=== PATIENT | female | born 1980 | race American Indian/Alaskan Native ===

== ENCOUNTER 2017-04-30 01:49 | Inpatient (IN) | payer OTHER ==
[2017-04-30 01:49] VITALS: BMI 25.0
--- NOTE | 2017-04-30 02:13 | ED PDOC ---
Arrival/HPI - General Chief Complaint: Chest Pain Time Seen by Provider: 04/30/17 02:05 Historian: Patient - History of Present Illness Narrative History of Present Illness (Text): 04/30/17 02:13 Tess Hammond is a 36 year old female, whose past medical history includes anemia , who presents to the Emergency department complaining of chest pain tonight. Patient states she began experiencing chest pain radiating to her right, worsened with movement, tonight while lying in bed tonight. Patient reports associated dizziness and paresthesias to her right arm. Patient denies any history of tobacco abuse, fever, shortness of breath, abdominal pain, nausea, vomiting, diarrhea, back pain, neck pain, headache, vision changes, or any other complaints. Time/Duration: Other (tonight) Symptom Onset: Gradual Symptom Course: Unchanged Activities at Onset: Light Context: Home Past Medical History - Provider Review Nursing Documentation Reviewed: Yes - Infectious Disease Hx of Infectious Diseases: None - Reproductive Menopause: No - Cardiac Hx Cardiac Disorders: No - Pulmonary Hx Respiratory Disorders: Yes Hx Asthma: Yes - Neurological Hx Neurological Disorder: Yes Hx Headaches: Yes - HEENT Hx HEENT Disorder: No - Renal Hx Renal Disorder: No - Endocrine/Metabolic Hx Endocrine Disorders: No - Hematological/Oncological Hx Blood Disorders: No - Integumentary Hx Dermatological Disorder: No - Musculoskeletal/Rheumatological Hx Musculoskeletal Disorders: No Hx Falls: No - Gastrointestinal Hx Gastrointestinal Disorders: Yes Hx Constipation: Yes - Genitourinary/Gynecological Hx Genitourinary Disorders: No - Psychiatric Hx Psychophysiologic Disorder: No Hx Depression: No Hx Emotional Abuse: No Hx Physical Abuse: No Hx Substance Use: No - Suicidal Assessment Feels Threatened In Home Enviroment: No Family/Social History - Physician Review Nursing Documentation Reviewed: Yes Family/Social History: Unknown Family HX Smoking Status: Never Smoked Hx Alcohol Use: No Hx Substance Use: No Hx Substance Use Treatment: No Allergies/Home Meds Allergies/Adverse Reactions: Allergies No Known Allergies Allergy (Verified 04/30/17 01:58) Home Medications: Home Meds Medication Instructions Recorded Confirmed No Known Home Med 04/30/17 04/30/17 Review of Systems - Physician Review All systems were reviewed & negative as marked: Yes - Review of Systems Constitutional: Normal. absent: Fevers Eyes: Normal ENT: Normal Respiratory: Normal. absent: SOB, Cough Cardiovascular: Chest Pain Gastrointestinal: Normal. absent: Abdominal Pain Genitourinary Female: Normal. absent: Dysuria, Frequency, Urine Output Changes Musculoskeletal: Other (+paresthesias). absent: Back Pain Skin: Normal Neurological: Dizziness Endocrine: Normal Hemo/Lymphatic: Normal Psychiatric: Normal Physical Exam Vital Signs Reviewed: Yes Vital Signs Temp Pulse Resp BP Pulse Ox 04/30/17 01:49 98.4 F 82 17 122/54 L 100 Temperature: Afebrile Blood Pressure: Normal Pulse: Regular Respiratory Rate: Normal Appearance: Positive for: Well-Appearing, Non-Toxic, Comfortable Pain Distress: None Mental Status: Positive for: Alert and Oriented X 3 - Systems Exam Head: Present: Atraumatic, Normocephalic Pupils: Present: PERRL Extroacular Muscles: Present: EOMI Conjunctiva: Present: Normal Mouth: Present: Moist Mucous Membranes Neck: Present: Normal Range of Motion Respiratory/Chest: Present: Clear to Auscultation, Good Air Exchange. No: Respiratory Distress, Accessory Muscle Use Cardiovascular: Present: Regular Rate and Rhythm, Normal S1, S2. No: Murmurs Abdomen: Present: Normal Bowel Sounds. No: Tenderness, Distention, Peritoneal Signs Back: Present: Normal Inspection Upper Extremity: Present: Normal Inspection. No: Cyanosis, Edema Lower Extremity: Present: Normal Inspection. No: Edema Neurological: Present: GCS=15, CN II-XII Intact, Speech Normal Skin: Present: Warm, Dry, Normal Color. No: Rashes Psychiatric: Present: Alert, Oriented x 3, Normal Insight, Normal Concentration Medical Decision Making ED Course and Treatment: 04/30/17 02:13 Impression: 36 year old female complaining of chest pain and dizziness tonight. Plan: -- CT Head w/o contrast -- EKG -- Labs, cardiac enzymes -- Reassess and disposition Progress Notes: Reviewed EKG, NSR at [address]-segment elevations or depressions, no T-wave inversions, normal intervals. 04/30/17 03:30 Labs noted, hgb: 5.8. hct: 22.1. Blood type and screen ordered, will transfuse pt. 04/30/17 04:[address] Guerrero, who is aware and agrees with plan. Accepts pt in to her service. Pt will go to Telemetry observation for anemia. Requests Dr. Crane on consult. 04/30/17 05:40 CT Head shows: No intracranial hemorrhage. No intracranial edema. No evidence of infarct. The sinuses and mastoid air cells are clear. IMPRESSION: No acute findings. - Lab Interpretations Lab Results: 04/30/17 02:00 04/30/17 02:00 Lab Results 04/30/17 04:19: Blood Type Pending, Antibody Screen Pending, Crossmatch See Detail, BBK History Checked Patient has bt 04/30/17 02:00: WBC 4.9, RBC 3.51, Hgb 5.8 L*, Hct 22.1 L, MCV 63.0 L, MCH 16.5 L, MCHC 26.2 L, RDW 20.3 H, Plt Count 125 04/30/17 02:00: Sodium 137, Potassium 3.7, Chloride 103, Carbon Dioxide 24, Anion Gap 14, BUN 9, Creatinine 0.7, Est GFR ( Amer) > 60, Est GFR (Non- Af Amer) > 60, Random Glucose 102, Calcium 9.7, Total Bilirubin 0.3, AST 23, ALT 18, Alkaline Phosphatase 80, Lactate Dehydrogenase 246 L, Total Creatine Kinase 39, Troponin I 0.06, Total Protein 7.9, Albumin 4.1, Globulin 3.8, Albumin/Globulin Ratio 1.1 04/30/17 02:00: PT 12.8 H, INR 1.17 H, APTT 28.9 I have reviewed the lab results: Yes - RAD Interpretation Radiology Orders: 04/30/17 02:19 HEAD W/O CONTRAST [CT] Stat Intervention Teacher: Radiologist - EKG Interpretation Interpreted by ED Physician: Yes Type: 12 lead EKG - Scribe Statement The provider has reviewed the documentation as recorded by the Missy Song Provider Scribe Attestation: All medical record entries made by the [employer] were at my direction and personally dictated by me. I have reviewed the chart and agree that the record accurately reflects my personal performance of the history, physical exam, medical decision making, and the department course for this patient. I have also personally directed, reviewed, and agree with the discharge instructions and disposition. Disposition/Present on Arrival - Present on Arrival Any Indicators Present on Arrival: No History of DVT/PE: No History of Uncontrolled Diabetes: No Urinary Catheter: No History of Decub. Ulcer: No History Surgical Site Infection Following: None - Disposition Have Diagnosis and Disposition been Completed?: Yes Diagnosis: Chest pain, Anemia Disposition: HOSPITALIZED Disposition Time: 04:49 Patient Problems: Current Active Problems Problem Status Onset Anemia Acute Chest pain Acute Condition: STABLE
[2017-04-30 02:42] LABS: MEAN CORPUSCULAR HEMOGLOBIN 16.5 pg (25.0-35.0); MEAN CORPUSCULAR HGB CONC 26.2 g/dl (31.0-37.0); PLATELET COUNT 125 10^3/uL (120.0-450.0); RBC 3.51 10^6/uL (3.5-6.1); RED CELL DISTRIBUTION WIDTH 20.3 % (11.5-14.5); WHITE BLOOD COUNT 4.9 10^3/ul (4.5-11.0)
[2017-04-30 02:47] LABS: ALB/GLOB RATIO 1.1 (1.1-1.8); ALBUMIN 4.1 g/dL (3.0-4.8); ALT/SGPT 18 U/L (7-56); AST/SGOT 23 U/L (14-36); BLOOD UREA NITROGEN 9 mg/dL (7-21); CALCIUM 9.7 mg/dL (8.4-10.5); GFR AFRICAN-AMERICAN > 60; GFR NON-AFRICAN AMERICAN > 60
[2017-04-30 02:48] LABS: INR 1.17 (0.93-1.08); PARTIAL THROMBOPLASTIN TIME 28.9 Seconds (25.1-36.5); PROTHROMBIN TIME 12.8 SECONDS (9.4-12.5)
[2017-04-30 02:53] LABS: HEMOGLOBIN 5.8 g/dL (12.0-16.0)
[2017-04-30 02:58] LABS: TROPONIN I 0.06 ng/mL
--- NOTE | 2017-04-30 05:36 | CT ---
EXAM: CT Head Without Intravenous Contrast EXAM DATE/TIME: 04/30/2017 2:19 AM CLINICAL HISTORY: 36 years old, female; Pain; Headache; Additional info: Dizzy TECHNIQUE: Axial computed tomography images of the head/brain without intravenous contrast. All CT scans at this facility use one or more dose reduction techniques, viz.: automated exposure control; ma/kV adjustment per patient size (including targeted exams where dose is matched to indication; i.e. head); or iterative reconstruction technique. Coronal and sagittal reformatted images were created and reviewed. COMPARISON: No relevant prior studies available. FINDINGS: No intracranial hemorrhage. No intracranial edema. No evidence of infarct. The sinuses and mastoid air cells are clear. IMPRESSION: No acute findings.
[2017-04-30 08:32] LABS: URINE BILIRUBIN NEGATIVE (NEGATIVE); URINE BLOOD NEGATIVE (NEGATIVE); URINE GLUCOSE (UA) NEGATIVE (NEGATIVE); URINE LEUKOCYTE ESTERASE NEGATIVE Leu/uL (NEGATIVE); URINE NITRATE NEGATIVE (NEGATIVE); URINE PROTEIN NEGATIVE mg/dL (<30 mg/dL)
[2017-04-30 08:42] LABS: URINE APPEARANCE CLEAR (CLEAR); URINE COLOR YELLOW (YELLOW)
[2017-04-30 08:58] LABS: IRON 17 ug/dL (45-180)
[2017-04-30 09:07] LABS: TOTAL IRON BINDING CAPACITY 399 ug/dL (265-497)
[2017-04-30 09:09] LABS: % IRON SATURATION 4 % (20-55)
--- NOTE | 2017-04-30 15:36 | CARD ---
APPROVED REPORT EKG Measurement Heart [id number] <Conclusion> Normal sinus rhythm Normal ECG
[2017-04-30] MEDS ORDERED: Influenza Vaccine 60 mcg/0.5 mL SYR (4YR UP) IM ONE (16:21)
[2017-04-30 16:35] LABS: HEMOGLOBIN 8.2 g/dL (12.0-16.0); MEAN CELL VOLUME 67.3 fl (80.0-105.0); MEAN CORPUSCULAR HEMOGLOBIN 19.2 pg (25.0-35.0); MEAN CORPUSCULAR HGB CONC 28.5 g/dl (31.0-37.0); PLATELET COUNT 134 10^3/uL (120.0-450.0); RBC 4.28 10^6/uL (3.5-6.1); RED CELL DISTRIBUTION WIDTH 23.4 % (11.5-14.5); WHITE BLOOD COUNT 6.2 10^3/ul (4.5-11.0)
[2017-04-30] MEDS ORDERED: Iron Sucrose 100 mg/5 ml Inj IVP ONE (17:06)
[2017-04-30 17:36] LABS: TROPONIN I 0.07 ng/mL
[2017-04-30] MEDS: Cholecalciferol 1,000 INTLU TAB PO SCH (18:39)
[2017-04-30 21:46] LABS: FERRITIN 3.8 ng/mL
[2017-04-30 22:16] LABS: FOLATE 9.2 ng/mL
[2017-04-30 22:22] LABS: TROPONIN I 0.06 ng/mL
--- NOTE | 2017-05-01 02:45 | HP ---
CHIEF COMPLAINT: Chest pain and shortness of breath. HISTORY OF PRESENT ILLNESS: Ms. Tess Hammond is a 36-year-old female whose past medical history has anemia, came to the emergency room department complaining of chest pain tonight. Patient states that pain began experiencing in the chest, radiating to her right side, worsening with the movement tonight while lying down in the bed. Patient reports associated dizziness and paresthesia of her right arm. Patient denies any history of tobacco abuse, drug abuse, or alcohol abuse. No fever. No abdominal pain. No nausea, vomiting, or diarrhea. No back pain. No neck pain. No headache. No vision changes. PAST MEDICAL HISTORY: Asthma, headache, constipation. FAMILY HISTORY: Father, mother noncontributory. HABITS: Never smoked. No drugs. No ethanol abuse. ALLERGIES: PATIENT IS NOT ALLERGIC WITH ANY MEDICATION. MEDICATIONS: Denied, not taking any medications. REVIEW OF SYSTEMS: Patient was seen and examined at the bedside. No shortness of breath. No coughing. History of chest pain, but not feeling that at the moment when I did the examination. No abdominal pain. No dysuria, frequency, urinary output changes. Has paresthesia. No back pain. No rash. PHYSICAL EXAMINATION: VITAL SIGNS: Temperature 98.4, pulse 82, respiratory rate 17, blood pressure 122/54. HEENT: Head: Normocephalic and atraumatic. Eyes: PERRLA. Extraocular muscles intact. Conjunctivae clear. Nose: Patent. Mucous membranes moist. NECK: Supple. No carotid bruits. No JVD or thyromegaly. CHEST: Bilaterally symmetrical. HEART: S1, S2 positive. LUNGS: Clear to auscultation. ABDOMEN: Soft. Bowel sounds positive. No organomegaly. EXTREMITIES: No edema. No cyanosis. NEUROLOGIC: Patient is sleepy, arousable. Moving all four extremities. No focal deficit. LABORATORY DATA: White blood cells 4.9, hemoglobin 5.8, hematocrit 22.1, platelet 125. Sodium 137, potassium 3.7, BUN 9, creatinine 0.7, glucose 102. ASSESSMENT AND PLAN: Ms. Tess Hammond, a 36-year-old lady, came with severe anemia, symptomatic; chest pain; dizziness; seen by the freight flow sales leader Dr. Crane. Packed red blood cells transfused. Chest pain and dizziness improved. Admission hemoglobin was 5.8; after transfusion, it is 8.2. Patient has iron deficiency. We will order cardiac enzymes x3. Waiting for Dr. Richardson's input. Meanwhile, continue present treatment. Gastrointestinal and deep vein thrombosis prophylaxis. Repeat labs. We will follow. Vita Guerrero MD
[2017-05-01 07:23] LABS: HEMOGLOBIN 8.2 g/dL (12.0-16.0); MEAN CORPUSCULAR HEMOGLOBIN 18.6 pg (25.0-35.0); MEAN CORPUSCULAR HGB CONC 27.8 g/dl (31.0-37.0); PLATELET COUNT 121 10^3/uL (120.0-450.0); RED CELL DISTRIBUTION WIDTH 22.8 % (11.5-14.5); WHITE BLOOD COUNT 4.6 10^3/ul (4.5-11.0)
[2017-05-01 07:42] LABS: BLOOD UREA NITROGEN 11 mg/dL (7-21); CALCIUM 9.8 mg/dL (8.4-10.5); GFR AFRICAN-AMERICAN > 60; GFR NON-AFRICAN AMERICAN > 60; HDL CHOLESTEROL 40 mg/dL (29-60)
[2017-05-01 07:51] LABS: LDL CHOLESTEROL 83 mg/dL (0-129); TROPONIN I 0.07 ng/mL
[2017-05-01] MEDS: Cholecalciferol 1,000 INTLU TAB PO SCH (11:30)
[2017-05-01 12:20] LABS: FOLATE 5.3 ng/mL
--- NOTE | 2017-05-01 14:05 | CON ---
DATE: 04/30/2017 CONSULT REQUESTED BY: Vita Guerrero MD REASON FOR CONSULTATION: Severe anemia. HISTORY OF PRESENT ILLNESS: Mrs. Hammond is a 36-year-old female admitted to the hospital with shortness of breath and dizziness. Hemoglobin was found to be 5.8 g/dL. She has history of menorrhagia. No history of bleeding from any other site. She had low hemoglobin previously also, has not required blood transfusion. Denies any family history of thalassemia or sickle cell trait. No dark colored stools. No abdominal pain. She has history of headaches in the past. No exacerbation recently. PAST MEDICAL HISTORY: Asthma, menorrhagia, headaches. Constipation. PAST SURGICAL HISTORY: None. FAMILY HISTORY: Noncontributory. No positive history in mother or father. PERSONAL HISTORY: Never smoked, no history of alcohol abuse. SOCIAL HISTORY: Lives at home. ALLERGIES: NO KNOWN DRUG ALLERGIES. HOME MEDICATIONS: None. REVIEW OF SYSTEMS: As per HPI. Rest of 12-point review of systems reviewed negative. PHYSICAL EXAMINATION: GENERAL: Comfortable in bed, in no acute distress. VITAL SIGNS: Temperature is 98.4, heart rate is 82, respiratory rate is 17 per minute, blood pressure is 122/54, pulse ox is 100% on room air. HEENT: Pallor positive. NECK: Supple. CHEST: Air entry present and equal bilaterally. CARDIOVASCULAR: Tachycardia plus, S1 and S2 normal. No murmur and no gallop. ABDOMEN: Soft and nontender. No hepatosplenomegaly. EXTREMITIES: No edema. HEAD TELLER: Alert and oriented x3. No focal sensory or motor deficit. IMAGING: CAT scan of the head, no acute findings. LABS: White count 4.9, hemoglobin 5.8, hematocrit 22, platelet count 125. Sodium 137, potassium 3.7, BUN 9, creatinine 0.7, glucose 102. LDH 246. ASSESSMENT AND PLAN: 1. Severe anemia. 2. Menorrhagia. 3. History of headaches. PLAN: Iron studies ordered to be done stat, showed low iron of 17, ferritin of 4 only. She has severe iron deficiency anemia likely related to menorrhagia blood loss. No other signs of blood loss as per history. MCV is lower, 67, consistent with iron deficiency anemia. No family history of thalassemia or sickle cell trait. She received 2 units of blood transfusion today. I ordered one more unit of blood transfusion. Repeat CBC after transfusion. If hemoglobin is less than 8.0 gm/dl, she might need more PRBCs. She will need IV iron, which can be done in the office upon discharge from the hospital. Thank you Dr. Guerrero for allowing us to participate in Mrs. Hammond's care. Asiya Crane MD MTDDylan
--- NOTE | 2017-05-01 22:29 | CON ---
DATE: 05/01/2017 REASON FOR CONSULTATION: Followup chest pain, shortness of breath, cardiac evaluation. BRIEF CLINICAL HISTORY: This is a 36-year-old female with past medical history significant for anemia, history of heavy periods, came in with complaint of shortness of breath for a couple of days and chest pain, left-sided which is very tender and reproducible. Denies any prior episode of chest pain, but complain shortness of breath and dizziness on exertion. PAST MEDICAL HISTORY: Significant for anemia, heavy menstrual period, constipation, headache, and asthma. FAMILY HISTORY: No history of coronary artery disease. SOCIAL HISTORY: Denies any smoking. Denies any history of alcohol abuse. 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 ALLERGIES: NO KNOWN DRUG ALLERGIES. CURRENT MEDICATIONS: Denies any medication at home. REVIEW OF SYSTEMS: As per HPI. PHYSICAL EXAMINATION: As follows: VITAL SIGNS: Temperature afebrile, heart rate 60, blood pressure 90/50. HEENT: PERRLA. Extraocular muscles intact. NECK: Supple. No carotid bruit or thyromegaly. CHEST: Clear to auscultation. HEART: S1 and S2 regular. ABDOMEN: Soft. EXTREMITIES: Clubbing and cyanosis negative. LABORATORY DATA: Blood workup as follows: WBC 4.6, hemoglobin 8.8, hematocrit 29.5, platelet count 121. Admitting hemoglobin 5.8, sodium 130, potassium 3.0, chloride 106, carbon dioxide 23, anion gap of 12, BUN 11, creatinine 0.7. EKG showed normal sinus rate of 61. IMPRESSION: Atypical chest pain, tenderness in the chest, shortness of breath secondary to anemia, but troponin most likely secondary to hemodynamic instability. RECOMMENDATIONS: We will unit of packed RBC and we will just for risk stratification do the stress test tomorrow. Discuss with the patient. I will get lipid profile, TSH, and hemoglobin A1c. Thank you Dr. Guerrero for providing us the opportunity in taking care of the patient. Keep hemoglobin around 10. Positive troponin of indeterminate range most likely secondary to anemia, but cannot rule out underlying coronary artery disease do unlikely. So we will give 2 units of blood and if hemoglobin goes around 10 we will do stress test tomorrow. We will get the stress test tomorrow after the hemoglobin reaches to 10. Telly Richardson MD
--- NOTE | 2017-05-01 23:05 | CP.PCM.PN ---
Subjective - Date & Time of Evaluation Date of Evaluation: 05/01/17 Time of Evaluation: 12:00 - Subjective Subjective: She is comfortable in bed. getting 2 more units of PRBCs as per cardiology. denies chest pain. Exertional dyspena . Hb improved to 8.2 gm/dl. Objective - Vital Signs/Intake and Output Vital Signs (last 24 hours): Temp Pulse Resp BP Pulse Ox 99 F 60 18 113/74 100 05/01/17 22:38 05/01/17 22:38 05/01/17 22:38 05/01/17 22:38 05/01/17 18:00 Intake and Output: 05/01/17 05/02/17 18:59 06:59 Intake Total 1220 0 Balance 1220 0 - Medications Medications: Current Medications Acetaminophen (Tylenol 325mg Tab) 650 mg PO Q6H PRN PRN Reason: Fever >100.4 F Last Admin: 05/01/17 21:20 Dose: 650 mg Ascorbic Acid (Vitamin C 500 Mg Tab) 500 mg PO DAILY [facility] Last Admin: 05/01/17 11:30 Dose: 500 mg Cholecalciferol (Vitamin D) 2,000 intlu PO DAILY [facility] Last Admin: 05/01/17 11:30 Dose: 2,000 intlu Cyanocobalamin (Vitamin B12 1000 Mcg Tab) 1,000 mcg PO DAILY [facility] Last Admin: 05/01/17 11:30 Dose: 1,000 mcg Famotidine (Pepcid) 40 mg PO HS [facility] Last Admin: 05/01/17 21:20 Dose: 40 mg - Labs Labs: 05/01/17 06:30 05/01/17 06:30 PT 12.8 SECONDS (9.4-12.5) H 04/30/17 02:00 INR 1.17 (0.93-1.08) H 04/30/17 02:00 APTT 28.9 Seconds (25.1-36.5) 04/30/17 02:00 - Constitutional Appears: Well, Non-toxic - Head Exam Head Exam: ATRAUMATIC, NORMAL INSPECTION, NORMOCEPHALIC - Eye Exam Eye Exam: Normal appearance - ENT Exam ENT Exam: Mucous Membranes Moist - Neck Exam Neck Exam: Normal Inspection - Respiratory Exam Respiratory Exam: Clear to Ausculation Bilateral - Cardiovascular Exam Cardiovascular Exam: REGULAR RHYTHM, +S1, +S2 - GI/Abdominal Exam GI & Abdominal Exam: Soft, Normal Bowel Sounds - Back Exam Back Exam: NORMAL INSPECTION - Neurological Exam Neurological Exam: Alert, Normal Gait, Oriented x3 - Skin Skin Exam: Normal Color, Warm Assessment and Plan - Assessment and Plan (Free Text) Assessment: 1. severe iron deficiency anemia 2. menorragia 3. SOB Plan : she is scheduled for cardiac stress test tomorrow. 2 more PRBC to be given today as per cardiology. IV iron as out patient. US of uterus to rule out fibroids. . Work up for possible mild bleeding disorder will be done as out patient. Thank you Dr. Guerrero for allowing us to participate in her care.
[2017-05-02 00:38] VITALS: RESP 20
--- NOTE | 2017-05-02 00:56 | PN ---
DATE: SUBJECTIVE: The patient is seen and examined at the bedside, looking comfortable. No nausea, vomiting, or diarrhea. and daughter is sitting on the bedside, getting blood transfusion. No shortness of breath, sometimes still getting chest pain. PHYSICAL EXAMINATION VITAL SIGNS: Temperature 98.4, heart rate 82, respiratory rate 17, blood pressure 122/54, pulse oximetry 100% on room air. HEENT: Head: Normocephalic and atraumatic. Eyes: PERRLA. Extraocular muscles intact. Conjunctivae clear. Nose patent. Mucous membranes moist. NECK: Supple. No carotid bruits. No JVD or thyromegaly. CHEST: Bilaterally symmetrical. HEART: S1 and S2 positive. LUNGS: Clear to auscultation. ABDOMEN: Soft and nontender. No organomegaly. EXTREMITIES: No edema. No cyanosis. NEUROLOGIC: The patient is oriented x3. No focal deficit. LABORATORY DATA: White blood cells 4.9, hemoglobin 5.8, hematocrit 22, platelets 125. Sodium 137, potassium 3.7, BUN 9, creatinine 0.7, glucose 102, LDH 247. ASSESSMENT AND PLAN: Ms. Tess Hammond has severe anemia, status post blood transfusion and menorrhagia due to fibroid uterus, history of headache. chest pain, iron studies ordered. The patient has iron deficiency, getting iron infusion. The patient is educated to go to see her [employer] for menorrhagia. Glass Engraver is on the case. Warehouse Logistics Manager is on the case. Appreciated input of Dr. Crane. CAT scan of the head is done, reviewed by me. The patient has history of asthma, constipation. Gastrointestinal and deep venous thrombosis prophylaxis. Repeat labs. We will follow. Vita Guerrero MD
[2017-05-02 07:26] LABS: BASO # 0.03 K/mm3 (0.0-2.0); BASO % 0.5 % (0.0-3.0); EOS # 0.1 (0.0-0.7); EOS % 2.1 % (1.5-5.0); GRAN # 3.27 (1.4-6.5); GRAN % 49.6 % (50.0-68.0); LYMPH # 2.6 (1.2-3.4); LYMPH % 39.8 % (22.0-35.0); MEAN CELL VOLUME 70.4 fl (80.0-105.0); MEAN CORPUSCULAR HEMOGLOBIN 21.1 pg (25.0-35.0); MONO # 0.5 (0.1-0.6); PLATELET COUNT 140 10^3/uL (120.0-450.0); RBC 5.21 10^6/uL (3.5-6.1); RED CELL DISTRIBUTION WIDTH 24.7 % (11.5-14.5); WHITE BLOOD COUNT 6.6 10^3/ul (4.5-11.0)
[2017-05-02 07:52] LABS: ALB/GLOB RATIO 0.9 (1.1-1.8); ALBUMIN 4.2 g/dL (3.0-4.8); ALT/SGPT 29 U/L (7-56); AST/SGOT 26 U/L (14-36); BLOOD UREA NITROGEN 11 mg/dL (7-21); GFR AFRICAN-AMERICAN > 60; GFR NON-AFRICAN AMERICAN > 60; MAGNESIUM 1.9 mg/dL (1.7-2.2)
[2017-05-02] MEDS ORDERED: Aminophylline 25 mg/ml Inj ONE (10:35)
[2017-05-02] MEDS: Cholecalciferol 1,000 INTLU TAB PO SCH (12:27)
[2017-05-02] MEDS ORDERED: Potassium Chloride 20 mEq ER Tab PO ONE (12:31)
--- NOTE | 2017-05-02 17:08 | PN ---
REASON FOR CONSULTATION AND FOLLOWUP: Chest pain and shortness of breath, cardiac evaluation, severe anemia, status post 4 units of packed RBC transfusion. SUBJECTIVE: The patient denies any chest pain, but still feels tenderness on the chest. OBJECTIVE: GENERAL: Not in apparent distress. Feels chip bin conveyor tender on the chest. VITAL SIGNS: Temperature afebrile, heart rate 50, blood pressure 105/71. HEENT: PERRLA. Extraocular muscles intact. NECK: Supple. No carotid bruits or thyromegaly. CHEST: Clear to auscultation. HEART: S1 and S2 regular. ABDOMEN: Soft. EXTREMITIES: Clubbing and cyanosis negative. LABORATORY DATA: WBC 6.6, hemoglobin 11, hematocrit 36.7, platelet count 140. Chemistry shows sodium 140, potassium 3.5, chloride 103, carbon dioxide 24, anion gap of 17, BUN 11, creatinine 0.7. IMPRESSION: Atypical chest pain, so far no evidence of acute myocardial infarction, severe anemia status post 4 units of packed RBC transfusion. Last time nurse called that patient complained of chest pain, which is very tender. The patient's temperature is 99, so 2 Tylenol given, 2 units of packed RBC was transfused. This morning, hemoglobin is 11, potassium 4. The patient is cleared for a stress test today. Further recommendation after the stress test and echo. We will follow with you. The patient is okay to be discharged after the stress test. Follow up stress as outpatient. We will supplement potassium. Thank you Dr. Guerrero for providing us the opportunity in taking care of the patient Tess Hammond. Telly Richardson MD
[2017-05-02 17:56] VITALS: BP 113/72; TEMP 97.8; O2SAT 97
--- NOTE | 2017-05-02 18:05 | CARD ---
APPROVED REPORT EXAM: Two-dimensional and M-mode echocardiogram with Doppler and color Doppler. INDICATION LV Function:SystolicDiastolic Chest Pain 2D DIMENSIONS Left Atrium (2D)3.8 (1.6-4.0cm)IVSd0.9 (0.7-1.1cm) LVDd4.3 (3.9-5.9cm)PWd0.9 (0.7-1.1cm) LVDs2.8 (2.5-4.0cm)FS (%) 35.7 % LVEF (%)65.5 (>50%) M-Mode DIMENSIONS Aortic Root2.70 (2.2-3.7cm)Aortic Cusp Exc.1.80 (1.5-2.0cm) Aortic Valve AoV Peak Dawycqyn010.0cm/Bing Peak GR.8mmHg Mitral Valve MV E Rtayxuur09.6cm/sMV A Afkgjifh09.3cm/sE/A ratio1.3 TDI Lateral E' Peak V12.10cm/sMedial E' Peak V9.36cm/sE/Lateral E'5.9 E/Medial E'7.6 Pulmonary Valve PV Peak Hsoioubg11.1cm/sPV Peak Grad.2mmHg Tricuspid Valve TR Peak [id number]/sRAP [id number] Peak Gr.24mmHg [id number] LEFT VENTRICLE The left ventricle is normal size. There is normal left ventricular wall thickness. The left ventricular function is normal.EF-55-60% There is normal LV segmental wall motion. The left ventricular diastolic function is normal. No left ventricle thrombus noted on this study. There is no ventricular septal defect visualized. There is no left ventricular aneurysm. There is no mass noted in the left ventricle. RIGHT VENTRICLE The right ventricle is normal size. There is normal right ventricular wall thickness. The right ventricular systolic function is normal. ATRIA The left atrium size is normal. The right atrium size is normal. The interatrial septum is intact with no evidence for an atrial septal defect. AORTIC VALVE The aortic valve is thickened but opens well. There is trace aortic regurgitation. There is no aortic valvular stenosis. There is no aortic valvular vegetation. MITRAL VALVE The mitral valve is thickened but opens well. Mitral regurgitation is mild. There is no mitral valve stenosis. There is no evidence of mitral valve prolapse. TRICUSPID VALVE The tricuspid valve leaflets are thickened , but open well. There is mild tricuspid regurgitation.RVSP-34 mmof Hg. There is no tricuspid valve stenosis. There is no tricuspid valve prolapse or vegetation. PULMONIC VALVE The pulmonic valve is mildly thickened. There is no pulmonic valvular regurgitation. There is no pulmonic valvular stenosis. GREAT VESSELS The aortic root is normal in size. The ascending aorta is normal in size. The pulmonary artery is normal. The IVC is normal in size and collapses >50% with inspiration. PERICARDIAL EFFUSION There is no pleural effusion. There is no pericardial effusion. <Conclusion> Normal chamber Size. EF-55-60% There is trace aortic regurgitation. Mitral regurgitation is mild. There is mild tricuspid regurgitation.RVSP-34 mmof Hg. No Vegetation noted.
[2017-05-02 18:39] VITALS: PULSE 70
[2017-05-02] MEDS ORDERED: Influenza Vaccine 60 mcg/0.5 mL SYR (4YR UP) IM ONE (18:44)
--- NOTE | 2017-05-02 20:40 | CARD ---
APPROVED REPORT Protocol: LEXISCAN Test Type: Lexiscan Sestamibi Stress Test Attending Physician: Dr. Telly Concepcion Referring Physician: Dr. Vita Guerrero Test Indications: Chest Pain Height:5 ft 4 in Weight:161lbs Medications: TYLENOL, VITAMIN c, vITAMIN B 12, VITAMIN D, PEPCID Medical History: 36 YEAR OLD FEMALE WITH A H/O ASTHMA, CONSTIPATION AND HEADACHES Target HR: 185 bpm Resting ECG: RSR. ST_T Changes. Resting Heart Rate: 59 bpm Resting Blood Pressure: 74/80mmHg Submaximum (85%): 157 bpm PROCEDURE Pharmacologic stress testing was performed using 0.4mg per 5ml of regadenoson given intravenously over 7-10 seconds. Reversal agent aminophyline 150 mg, given intravenously for Dizziness. POST EXERCISE Reason for Termination: Protocol completed Target HR: No Max HR: 70 bpm 63% of Maximum Predicted HR: 185 bpm Exercise duration: 00:32 min:sec, 0 Stage Exercise capacity: 1.0METs Max Blood Pressure: 124/78mmHg Blood Pressure response to exercise: normal resting BP - appropriate response Heart Rate response to exercise: appropriate Chest Pain: No, none Angina index: 0 Arrhythmia: No, none ST Change: No, none Deviation: 0 mm INTERPRETATION Stress EKG Conclusion: STRESS TEST CHANGED TO IV LEXISCAN NUCLEAR STRESS TEST PATIENT COULD NO ACHIEVE ADEQUATE HEART RATE ON TREADMIL BECAUSE OF SHORTNESS OF BREATH. IV LEXISCAN NUCLEAR STRESS TEST NEGATIVE FOR CHEST PAIN AND NEGATIVE FOR ADDITIONAL ST-T CHANGES. NUCLEAR SCAN REPORT PENDING. Signed by Telly Concepcion Electronically Approved: 05/02/2017 11:43:03 EXAM: Myocardial Perfusion REST/STRESS Stress Test Type: Pharmacologic Imaging Protocol Rest Spect myocardial perfusion imaging was performed in supine position 50 minutes following the injection of 10.3 mCi of Tc-99 Myoview. At peak stress, the patient was injected intravenously with 30.9mCi of Tc-99 tetrofosmin after an infusion time of 0 minutes and 10 seconds. Gated Stress Spect was performed 65 minutes after intravenous Tc-99 Myoview injection. The images were gated to evaluate regional wall motion and calculate ventricular ejection fraction.Images were reconstructed using backfilter projection method in short horizontal and verticle long axis. Spect slices were generated. LV Perfusion The quality of the study is good. The left ventricle is normal in size. The right ventricle is unremarkable. The lung uptake is normal. The distribution of tracer reveals mildly to moderately decreased perfusion involving mid to distal anterior and apical brasher on the stress study. The remainder of the LV myocardium is unremarkable. The rest myocardial perfusion study shows no significant change. Wall Motion Wall motion study shows good contractility of the left ventricle. LVEF = 55%. Conclusion 1. Essentially normal SPECT myocardial perfusion study. 2. Fixed, anterior and apical defects are most likely due to breast attenuation. 3. Normal gated wall motion of the left ventricle.
--- NOTE | 2017-05-05 03:27 | DS ---
CHIEF COMPLAINT: Chest pain and shortness of breath. HISTORY OF PRESENT ILLNESS: Ms. Tess Hammond is a 36-year-old female with past medical history of anemia who came to the Emergency Department complaining of chest pain. The patient states that pain began experiencing in the chest radiating to her right side, worsening with the movement. While lying down in the bed, the patient reports associated dizziness and paraesthesia of the right arm. The patient denies any history of tobacco use, drug abuse or alcohol abuse. No fever. No chills. No abdominal pain. No nausea or vomiting. No diarrhea. No hematuria, no hematochezia. We admitted the patient, did CAT scan of the head, stress test was done, echocardiography done. The patient was seen by Dr. Richardson, position classification manager and Dr. Asiya Crane, concrete puddler. The patient improved. Floor Care Specialist cleared the patient for discharge. Got blood transfusion, improved, chest pressure has gone. Discharged by a friend, follow up in my office, prescriptions, medications and vitamins given. Even in the hospital, vitamin was injected. PAST MEDICAL HISTORY: Asthma, headache, and constipation. FAMILY HISTORY: Father and mother noncontributory. HABITS: Never smoked. No drug, no ethanol abuse. ALLERGIES: THE PATIENT IS NOT ALLERGIC WITH ANY MEDICATIONS. HOME MEDICATIONS: Denied. REVIEW OF SYSTEMS: The patient is seen and examined at the bedside, looking comfortable. No nausea, vomiting or diarrhea. No hematuria, no hematochezia. No swelling of the legs. No chest pain. No headache, no dizziness. No shortness of breath. The patient got 4 units of packed RBCs plus iron infusion, and B12 injections. Cardiac evaluation was done. PHYSICAL EXAMINATION: VITAL SIGNS: Temperature 98.6, heart rate 58, blood pressure 105/71, and respiratory rate 20. HEENT: Head normocephalic and atraumatic. Eyes: PERRLA. Extraocular muscles intact. Conjunctivae clear. Nose patent. Mucous membranes moist. NECK: Supple. No carotid bruits. No JVD or thyromegaly. CHEST: Bilaterally symmetrical. HEART: S1 and S2 positive. LUNGS: Clear to auscultation. ABDOMEN: Soft. Bowel sounds positive. No organomegaly. EXTREMITIES: No edema. No cyanosis. NEUROLOGIC: The patient is awake and alert. Moving all four extremities. No focal deficits. LABORATORY DATA: White blood cells 6.6, hemoglobin 11, hematocrit 36.7, and platelets 140. Sodium 140, potassium 3.5, BUN 11, and creatinine 0.7. ASSESSMENT AND PLAN: Ms. Tess Hammond is a 36-year-old female chest pain, no evidence of acute myocardial infarction, severe anemia status post 4 units packed RBC transfusion. The patient complained of chest pain on which she was very tender. The patient has temperature of 99 so two Tylenol given. Four units packed RBCs transfused. Hemoglobin increased to 11. The patient cleared for stress test today. Went for stress test. The patient will be able to discharged after stress test because the patient was cleared by the position classification manager and concrete puddler. GI and DVT prophylaxis. Repeat labs. We will follow up. Vita Guerrero MD
== END 2017-05-02 19:43 | disposition home or self-care (01) | DRG 812 ==
LOC: ED 01:49 → ERH 04:45 → 3RSO 08:42 → OBSVTOIN 05-01 18:35
PROVIDERS: ADMIT Internal Medicine; ATTEND Internal Medicine
PROC: 30233N1 Transfusion of Nonautologous Red Blood Cells into Peripheral Vein, Percutaneous Approach (ICD-10-PCS; principal; 2017-04-30)
DX: D50.9 Iron deficiency anemia, unspecified (principal); J45.909 Unspecified asthma, uncomplicated; N92.0 Excessive and frequent menstruation with regular cycle; R40.2412 Glasgow coma scale score 13-15, at arrival to emergency department; K59.00 Constipation, unspecified